=== PATIENT | female | born 1970 | race Caucasian/White ===

== ENCOUNTER 2024-05-28 15:11 | Outpatient (RCR) | payer MEDICAID, SELFPAY ==
--- NOTE | 2024-05-28 16:07 | PT.ODS1RPT ---
PT OP Progress/Discharge Note Date of Service: 05/28/24 Progress Note/DC Note Progress Note/Discharge Note: DC Note Patient Information Visit Reasons: neck and shoulder Medical Diagnosis: Neck Pain; Bilateral Shoulder Pain Treatment Dx #1: Neck Pain Service Discharge Date: 05/28/24 Status Subjective: Pt mention her neck is better and still has her days where it hurts. Pt recently seen her doctor and requested therapy for her shoulder, however, provider decline. Pt has been able to resume ADLs with less limitation and feels comfortable being release from care with exercises to continue at home. Objective: C/S AROM: all motions are WNL BUE AROM: all motions are WNL BUE MMTs: grossly 4-/5 Scapula MMTs: grossly 3+/5 Assessment: Pt demonstrate functional c/s mobility and decrease neck pain allowing her to resume ADLs with less limitation. Pt will no longer benefit from physical therapy due to plateau towards goals. Pt was instructed on HEP last session and educated to continue exercises to maintain mobility. Pt performed all exercises safely, thank you for your referrals. Plan: D/C home with HEP and follow up with MD [facility] Procedure Charges Therapeutic Exercise 30 minutes: Yes
== END 2024-06-20 23:59 | disposition home or self-care (01) ==
LOC: CPTX 15:11
PROVIDERS: PCP Nurse Practitioner Family; Referring Provider Nurse Practitioner Family; Visit Provider Nurse Practitioner Family
DX: M54.2 Cervicalgia (principal); M25.512 Pain in left shoulder; M25.511 Pain in right shoulder
CPT/HCPCS: 97110